=== PATIENT | male | born 1970 | race Caucasian/White ===

== ENCOUNTER 2019-11-05 12:54 | Emergency (ER) | payer OTHER ==
[~2019-11-05] VITALS: Ht 160 cm; Wt 102.1 kg
[~2019-11-05 12:54] MED LIST: Z.1.PHENTERMINE H37. PO
--- OUTSIDE RECORDS SUMMARY | 2019-11-05 13:38 | XMS REPORT | Continuity of Care Document ---
Author Author [facility] Organization [facility] Address [address] [place] [address] Phone Unavailable Care Team Providers Care Credit Relationship Manager Name Role Phone ETHAN VALDEZ Attphys Unavailable NICOLETTE DAVILA M.D. Attphys Unavailabl e Problems Condition Name Condition Details Condition Category Status Onset Date Resolution Date Last Treatment Date Treating Clinician Comments Source Sensorineural hearing loss (SNHL) of lef t ear with restricted hearing of right ear Sensorineural hearing loss (SNHL) of lef t ear with restricted hearing of right ear Problem Active [facility] Subjective tinnitus of left ear Subjective tinnitus of left ear Pro blem Active [facility] Allergies, Adverse Reactions, Alerts Allergy Name Allergy Type Status Severity Reaction(s) Onset Date Inacti ve Date Treating Clinician Comments Source Penicillins Allergy to drug (finding) Active [facility] Family History Family Member Diagnosis Comments Start Date Stop Date Source Mother Family history of allergies [facility] Social History Smoking Status Start Date Stop Date Source Never smoked tobacco (finding) U [facility] Medications Ordered Medication Name Filled Medication Name Start Date Stop Da te Current Medication? Ordering Clinician Indication Dosage Frequency Signature (SIG) Comments Components Source Phentermine HCl CAPS Phentermine HCl CAPS Yes [facility] Vital Signs Vital Name Observation Time Observation Value Comments Source Body temperature 2019-06-30 10:43:00 97.6 [degF] Method: Oral [facility] Body temperature 2019-06-30 10:11:00 98.2 [degF] Method: Temporal [facility] Procedures Procedure Date / Time Performed Performing Clinician Shivani carito History of Knee Surgery [facility] History of Back Surgery [facility] Encounters Start Date/Time End Date/Time Encounter Type Admission Type Attendi [facility] Care Department Encounter ID Source 2019-06-30 11:00:00 2019-06-30 11:00:00 Appointment; AMBER VALDEZ KIMBERLY [facility] Otorhinolaryngology - [facility] [id number] [facility] 2019-06-30 10:30:00 2019-06-30 10:30:00 Appointment; NICOLETTE KO M.D. GOMEZ-RIVERA, FERNANDO, M.D. [facility] [place] [facility] [id number] [facility] Results This patient has no known results.
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
[2019-11-05] MEDS ORDERED: KETOROLAC TROMETHAMINE 60 MG/2 ML VIAL IM ONE (14:30)
[2019-11-05] MEDS ORDERED: METHOCARBAMOL 750 MG TAB PO ONE (14:30)
--- NOTE | 2019-11-05 15:26 | Diagnostic Imaging Report ---
HIP RIGHT MIN 4VWS(+/- PELVIS) - 3 views HISTORY: Pain. COMPARISON: None available. FINDINGS: Bones/joints: No acute fracture or dislocation. There are mild to moderate degenerative changes of the bilateral hips. The sacroiliac joints is symmetric. No pubic symphyseal widening. Degenerative changes of the lower lumbar spine. Soft tissues: No focal soft tissue abnormality. IMPRESSION: No acute fracture or dislocation. Mild to moderate bilateral hip ostearthritis. Signed by: Blake Jesus MD on 11/05/2019 3:22 PM
--- NOTE | 2019-11-05 15:31 | Diagnostic Imaging Report ---
Lumbar Spine Radiographs: 3 views HISTORY: Back pain. COMPARISON: None available. DISCUSSION: Alignment: Grade 1 degenerative retrolisthesis of L2 on L3 and L4 on L5. Vertebral bodies: No acute fracture. There is congenital nonsegmentation versus degenerative partial fusion of L3-L4 vertebral bodies. Intervertebral disc spaces: There is multilevel loss of intervertebral disc space with anterior and posterior osteophytes compatible with disc disease. These findings are most pronounced at L4-L5 and L5-S1 levels. Facet/foramen: Multilevel facet arthrosis most pronounced in the lower lumbar spine. The new referring this and not well seen on the oblique views. There is multilevel foraminal narrowing on the lateral projection best seen at L3-L4 and L4-L5 levels. Prevertebral soft tissues: There is mild atherosclerotic calcification of the abdominal aorta aorta. Others: The partially imaged abdomen has a normal bowel gas pattern. No abnormal calcification. IMPRESSION: Lumbar spondylosis with multilevel degenerative disc disease. No acute fracture or dislocation. Signed by: Blake Jesus MD on 11/05/2019 3:27 PM
--- NOTE | 2019-11-05 15:32 | Diagnostic Imaging Report ---
X-ray 3 views of the ankle. HISTORY: Pain. COMPARISON: None available. FINDINGS: Bones/joints: No acute fracture or dislocation. There is chronic fracture deformity of the mid fibular diaphysis. Prominent calcaneal spur. Soft tissues: No focal soft tissue abnormality. IMPRESSION: No acute radiographic abnormality. Signed by: Blake Jesus MD on 11/05/2019 3:29 PM
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
--- NOTE | 2019-11-05 15:35 | Diagnostic Imaging Report ---
X-ray 2 views of the shoulder. HISTORY: Pain. COMPARISON: None available. FINDINGS: Bones/joints: No acute fracture or dislocation. There are moderate degenerative changes of the glenohumeral and acromioclavicular joints characterized by joint space narrowing, subchondral sclerosis and marginal osteophytes. Soft tissues: No focal soft tissue abnormality. Others: The partially imaged left hemithorax is clear. IMPRESSION: No acute fracture or dislocation. Moderate degenerative changes of the glenohumeral and acromioclavicular joints Signed by: Blake Jesus MD on 11/05/2019 3:32 PM
[2019-11-05] MEDS ORDERED: ROBAXIN-750750 MG PEG (15:41)
[2019-11-05] MEDS ORDERED: IBU600 MG PO (15:41)
== END 2019-11-05 15:52 | disposition home or self-care (01) ==
LOC: ER 13:34
DX: S40.012A Contusion of left shoulder, initial encounter (principal); S20.219A Contusion of unspecified front wall of thorax, initial encounter; M54.5 Low back pain; M25.551 Pain in right hip; M25.572 Pain in left ankle and joints of left foot; V43.52XA Car driver injured in collision with other type car in traffic accident, initial encounter; Y92.488 Other paved roadways as the place of occurrence of the external cause; E66.01 Morbid (severe) obesity due to excess calories
CPT/HCPCS: 71045; 72110; 73030; 73503; 73610; 99284; J1885